=== PATIENT | female | born 1955 | race Two or more races ===

== ENCOUNTER → 2016-05-14 | Outpatient (CLI) | payer MEDICARE, OTHER ==
[~2016-05-14] MED LIST: AMITRIPTYLINE H25 MG PO; LISINOPRIL-HCTZ1 T16 PO; VOLTAREN75 MG PO
--- NOTE | ~2016-05-14 | BD1 ---
[facility] A Service of [facility] RADIOLOGY TEXT RESULTS PATIENT: PAUL CORLEY LOCATION: [facility] : 57 UNIT #: [id number] AGE: [address]: BELLA TEJEDA APRN SEX: F ORDER DR: [id number] [facility]. [place], [place] [address] [id number] O MR#: [id number] Acc #: [id number] NAME: PAUL CORLEY : 1955 SEX: F STUDY DATE/TIME: 05/14/2016 12:06 UNIT: [facility] ROOM: STUDY DESCRIPTION: BD Dexa Bone Dens 1+ Site Attending Physician: Bella Tejeda A.P.R.N. Ordering Physician: Bella Tejeda A.P.R.N. Primary Care Physician: Bella Tejeda A.P.R.N. MEDICAL IMAGING REPORT This report is preliminary unless electronic signature is present EXAM DXA scan. HISTORY 61-year-old female history of vitamin D deficiency. Postmenopausal screening for osteoporosis. FINDINGS Bone density was assessed utilizing a Hologic bone densitometer. Total bone density within the lumbar spine was calculated at 0.582 g/cm2 with a T-score of -4.2. Total bone density in the proximal left femur was calculated at 0.718 g/cm2 with a T-score -1.8. IMPRESSION Patient's total bone density within the lumbar spine is greater than 2.5 standard deviations below the mean and is compatible with the World Health Organization classification for osteoporosis. This places the patient at high fracture risk. Dictated by... Bob Jean M.D. THIS IS AN ELECTRONICALLY VERIFIED REPORT Bob Jean M.D. at 05/14/2016 5:01 PM MICHAEL/eliel TD: 05/14/2016 14:38 JOB #: [id number] [facility] A Service of [facility] RADIOLOGY TEXT RESULTS PATIENT: PAUL CORLEY LOCATION: [facility] #: [id number] : 57 UNIT #: [id number] AGE: [address]: BELLA TEJEDA APRN SEX: F ORDER DR: MEDICAL IMAGING REPORT COPY
== END | disposition home or self-care (01) ==
LOC: CWCC 11:41
DX: Z13.820 Encounter for screening for osteoporosis (principal); E55.9 Vitamin D deficiency, unspecified; F17.200 Nicotine dependence, unspecified, uncomplicated
CPT/HCPCS: 77080

== ENCOUNTER 2016-10-14 23:23 | Emergency (ER) | payer MEDICARE, OTHER ==
[~2016-10-14] VITALS: Ht 170.2 cm; Wt 74.4 kg
--- NOTE | ~2016-10-14 | CR172 ---
[facility] A Service of [facility] & [facility] RADIOLOGY TEXT RESULTS PATIENT: PAUL CORLEY LOCATION: [facility] : 57 UNIT #: [id number] AGE: [address]: Bonnie Mo APRN SEX: F ORDER DR: [id number] [facility] [address] [place], [place] [address] [id number] E MR#: [id number] Acc #: [id number] NAME: PAUL CORLEY : 1955 SEX: F STUDY DATE/TIME: 10/15/2016 2:31 UNIT: [facility] ROOM: STUDY DESCRIPTION: CR Knee 3 Views Lt Attending Physician: Bonnie Mo A.P.R.N. Ordering Physician: Bonnie Mo A.P.R.N. Primary Care Physician: Pablito NavaRPiero MEDICAL IMAGING REPORT This report is preliminary unless electronic signature is present EXAM Left knee, 10/15/2016 HISTORY 61-year-old female in the ED complaining of 1-month history of worsening bilateral knee pain and left ankle pain. No reported acute injury. TECHNIQUE Three-view left knee series FINDINGS The examination is negative. No fracture, arthropathy or other osseous abnormality. No visible joint effusion. IMPRESSION Negative left knee series. Dictated by... Kong Shukla M.D. THIS IS AN ELECTRONICALLY VERIFIED REPORT Kong Shukla M.D. at 10/15/2016 10:03 PM Jovan TD: 10/15/2016 10:42 JOB #: [id number] MEDICAL IMAGING REPORT Page 1 of 1 COPY
--- NOTE | ~2016-10-14 | CR20 ---
[facility] A Service of [facility] & [facility] RADIOLOGY TEXT RESULTS PATIENT: PAUL CORLEY LOCATION: [facility] : 57 UNIT #: [id number] AGE: [address]: Bonnie Mo APRN SEX: F ORDER DR: [id number] [facility] [address] [place], [place] [address] [id number] E MR#: [id number] Acc #: [id number] NAME: PAUL CORLEY : 1955 SEX: F STUDY DATE/TIME: 10/15/2016 2:29 UNIT: [facility] ROOM: STUDY DESCRIPTION: CR Ankle Min 3 Views Lt Attending Physician: Bonnie Mo A.P.R.N. Ordering Physician: Bonnie Mo A.P.R.N. Primary Care Physician: Jen Tejeda A.P.R.N. MEDICAL IMAGING REPORT This report is preliminary unless electronic signature is present EXAM Left ankle series, 10/15/2016. HISTORY 61-year-old female complaining of 1-month history of worsening bilateral knee pain and left ankle pain. No reported acute injury. TECHNIQUE Three-view left ankle series. FINDINGS The examination is negative. No fracture, dislocation, arthropathy or other osseous abnormality is demonstrated. IMPRESSION Negative left ankle series. Dictated by... Kong Shukla M.D. THIS IS AN ELECTRONICALLY VERIFIED REPORT Kong Shukla M.D. at 10/15/2016 10:03 PM BRAYAN/maranda TD: 10/15/2016 10:41 JOB #: [id number] MEDICAL IMAGING REPORT Page 1 of 1 COPY
--- NOTE | ~2016-10-14 | CR173 ---
[facility] A Service of [facility] & [facility] RADIOLOGY TEXT RESULTS PATIENT: PAUL CORLEY LOCATION: [facility] : 57 UNIT #: [id number] AGE: [address]: Bonnie Mo APRN SEX: F ORDER DR: [id number] [facility] [address] [place], [place] [address] [id number] E MR#: [id number] Acc #: [id number] NAME: PAUL CORLEY : 1955 SEX: F STUDY DATE/TIME: 10/15/2016 2:33 UNIT: [facility] ROOM: STUDY DESCRIPTION: CR Knee 3 Views Rt Attending Physician: Bonnie Mo A.P.R.N. Ordering Physician: Bonnie Mo A.P.R.N. Primary Care Physician: Pablito NavaRPiero MEDICAL IMAGING REPORT This report is preliminary unless electronic signature is present EXAM Right knee, 10/15/2016. HISTORY 61-year-old female in the ED complaining of a 1-month history of worsening bilateral knee pain and left ankle pain. No reported acute injury. TECHNIQUE Three-view right knee series. FINDINGS The examination is negative. No fracture, arthropathy, or other osseous abnormality. No visible knee joint effusion. IMPRESSION Negative right knee series. Dictated by... Kong Shukla M.D. THIS IS AN ELECTRONICALLY VERIFIED REPORT Kong Shukla M.D. at 10/15/2016 10:03 PM BRAYAN/eliel TD: 10/15/2016 10:46 JOB #: [id number] MEDICAL IMAGING REPORT Page 1 of 1 COPY
== END 2016-10-15 03:31 | disposition home or self-care (01) ==
LOC: CED 23:23
DX: M25.561 Pain in right knee (principal); M25.562 Pain in left knee; M25.571 Pain in right ankle and joints of right foot; M25.572 Pain in left ankle and joints of left foot; I10 Essential (primary) hypertension; F17.200 Nicotine dependence, unspecified, uncomplicated
CPT/HCPCS: 29530; 29540; 73562; 73610; 96372; 99283; J1885